=== PATIENT | female | born 1990 | race African-American/Black ===

== ENCOUNTER 2021-07-08 04:58 | Day surgery (SDC) | payer OTHER ==
[2021-07-05 17:27] VITALS: BMI 23.8
[2021-07-08] MEDS ORDERED: MIDAZOLAM HCL 2 MG/2 ML SINGLE DOSE VIAL ONE (07:48)
[2021-07-08] MEDS ORDERED: PROPOFOL 20 ML ONE (07:48)
[2021-07-08] MEDS ORDERED: GLYCOPYRROLATE 0.2 MG/1 ML VIAL ONE ×2 (07:48→08:42)
[2021-07-08] MEDS ORDERED: ROCURONIUM BROMIDE 50 MG/5 ML SYRINGE ONE (07:48)
[2021-07-08] MEDS ORDERED: DEXAMETHASONE SOD PHOSPHATE 4 MG/1 ML VIAL ONE (08:05)
[2021-07-08] MEDS ORDERED: NEOSTIGMINE METHYLSULFATE 0.5 MG/ML - 10 ML MDV ONE (08:42)
[2021-07-08] MEDS ORDERED: KETOROLAC TROMETHAMINE 30 MG/1 ML VIAL ONE (08:42)
[2021-07-08] MEDS ORDERED: PROMETHAZINE HCL 25 MG/1 ML VIAL IVPB PRN (09:01)
[2021-07-08] MEDS ORDERED: ONDANSETRON 4 MG/2 ML VIAL IVPUSH PRN (09:01)
[2021-07-08] MEDS ORDERED: oxyCODONE HCL 5 MG TABLET PO PRN (09:01)
[2021-07-08] MEDS ORDERED: LACTATED RINGERS SOLUTION 1,000 ML IV SCH (09:15)
[2021-07-08] MEDS ORDERED: oxyCODONE HCL 5 MG TABLET ONE (11:55)
[2021-07-08 15:00] VITALS: BP 115/66; PULSE 67; TEMP 98.1
== END 2021-07-08 13:05 | disposition home or self-care (01) ==
LOC: JASU-SURG 04:58
PROVIDERS: ATTEND Obstetrics & Gynecology
PROC: 0UT74ZZ Resection of Bilateral Fallopian Tubes, Percutaneous Endoscopic Approach (ICD-10-PCS; principal; 2021-07-08 08:00)
DX: N70.11 Chronic salpingitis (principal); N80.8 Other endometriosis
CPT/HCPCS: 81025; 88302-TC; 94760